=== PATIENT | female | born 1975 | race Caucasian/White ===

== ENCOUNTER 2017-07-11 09:57 | Outpatient (CLI) | payer OTHER ==
[~2017-07-11 09:57] MED LIST: MOTRIN800 MG PO
== END 2017-07-11 14:23 | disposition home or self-care (01) ==
LOC: SONOGRAMA 09:57
DX: E04.2 Nontoxic multinodular goiter (principal)

== ENCOUNTER 2017-08-06 08:27 | Outpatient (CLI) | payer OTHER | END 2017-08-06 08:36 | disposition home or self-care (01) | LOC: MAMO-SONO 08:27 | DX: Z12.31 Encounter for screening mammogram for malignant neoplasm of breast (principal); K80.20 Calculus of gallbladder without cholecystitis without obstruction; D24.1 Benign neoplasm of right breast; D24.2 Benign neoplasm of left breast ==

== ENCOUNTER 2017-08-06 08:37 | Outpatient (CLI) | payer OTHER | END 2017-08-06 08:51 | disposition home or self-care (01) | LOC: RAD 08:37 | DX: I70.0 Atherosclerosis of aorta (principal); M51.86 Other intervertebral disc disorders, lumbar region ==

== ENCOUNTER 2019-07-20 12:32 | Outpatient (CLI) | payer OTHER | END 2019-07-20 14:27 | disposition home or self-care (01) | LOC: RAD 12:32 | DX: S89.81XA Other specified injuries of right lower leg, initial encounter (principal) ==

== ENCOUNTER 2021-03-31 13:01 | Outpatient (CLI) | payer OTHER | END 2021-03-31 13:14 | disposition home or self-care (01) | LOC: MRI 13:01 | PROVIDERS: ATTEND Physical Medicine & Rehabilitation | DX: M54.17 Radiculopathy, lumbosacral region (principal) | CPT/HCPCS: 72148 ==

== ENCOUNTER 2021-04-27 09:12 | Outpatient (CLI) | payer OTHER | END 2021-04-27 09:24 | disposition home or self-care (01) | LOC: TOM 09:12 | PROVIDERS: ATTEND Internal Medicine | DX: R10.32 Left lower quadrant pain (principal); R10.31 Right lower quadrant pain ==

== ENCOUNTER 2024-04-29 08:02 | Outpatient (CLI) | payer OTHER | END 2024-04-29 08:11 | disposition home or self-care (01) | LOC: SONOGRAMA 08:02 | PROVIDERS: ATTEND Internal Medicine Gastroenterology | DX: R10.11 Right upper quadrant pain (principal) ==

== ENCOUNTER 2024-05-22 09:51 | Outpatient (CLI) | payer OTHER | END 2024-05-22 10:07 | disposition home or self-care (01) | LOC: MRI 09:51 | PROVIDERS: ATTEND Internal Medicine Gastroenterology | DX: R10.9 Unspecified abdominal pain (principal) | CPT/HCPCS: 74181 ==

== ENCOUNTER → 2024-06-10 09:13 | Outpatient (CLI) | payer OTHER | END | disposition home or self-care (01) | LOC: NUCLEAR 09:13 | PROVIDERS: ATTEND Internal Medicine Gastroenterology | DX: K81.1 Chronic cholecystitis (principal) ==